=== PATIENT | female | born 1990 | race Caucasian/White ===

== ENCOUNTER 2017-01-16 06:14 | Inpatient (IN) | payer BC ==
[~2017-01-16] VITALS: Ht 167.6 cm; Wt 56.7 kg
--- NOTE | 2017-01-16 08:45 | NUR ---
SCRUB TECH NOTES PATIENT ARRIVED TO [facility] FROM [place] VIA AMBULANCE. VITAL SIGNS: BLOOD PRESSURE 144/95 AND HEART RATE 105. NO SIGNS AND SYMPTOMS OF DISTRESS. PATIENT DENIED PAIN. IV SITE IS POTENT AND INTACT, LEFT AC 20G OPENED AT [facility]. WILL CONTINUE TO ASSESS AND MONITOR PATIENT THROUGH OUT MY SHIFT
[2017-01-16 09:00] VITALS: BP 144/65
[2017-01-16] MEDS ORDERED: DULO60CA45 PO (09:25)
[2017-01-16] MEDS ORDERED: TRAZ-144 PO (09:25)
[2017-01-16] MEDS ORDERED: GABA600T2 PO (09:27)
[2017-01-16] MEDS ORDERED: AMOX500C2 PO (09:44)
[2017-01-16 12:00] VITALS: BP 136/71
[2017-01-16] MEDS ORDERED: MAG HYDROX/AL HYDROX/SIMETH 30 ML UDC PO PRN (12:00)
[2017-01-16] MEDS ORDERED: ZOLPIDEM TARTRATE 5 MG TABLET PO PRN (12:00)
[2017-01-16] MEDS ORDERED: ACETAMINOPHEN 325 MG TABLET PO PRN (12:00)
[2017-01-16] MEDS ORDERED: GADOVERSETAMIDE 2.5 MMOL/5 ML VIAL IJ ONE (12:00)
[2017-01-16] MEDS ORDERED: MAGNESIUM HYDROXIDE 30 ML UDC PO PRN (12:00)
[2017-01-16] MEDS ORDERED: Z GUARD REMEDY 2 OZ OINT TP PRN (12:00)
[2017-01-16] MEDS ORDERED: ONDANSETRON HCL/PF 4 MG/2 ML VIAL IVP PRN (12:00)
--- NOTE | 2017-01-16 15:49 | NUR ---
MRI APPROVED BY , IT WILL BE DONE AT 5.00PM..
[2017-01-16 16:00] VITALS: BP 110/68
--- NOTE | 2017-01-16 17:25 | NUR ---
RN NOTES PATIENT IS OFF THE FLOOR FOR MRI
--- NOTE | 2017-01-16 17:56 | NUR ---
RN NOTES ----- [facility] TEST RESULTS DR. AGUILA REQUESTED TO CONTACT THE RADIOLOGY DEPARTMENT ON TUESDAY TO INTERPRET THE TEST RESULTS COMPLETED BY [facility] PRIOR TO TRANSFER THE PATIENT TO [facility]. WILL ENDORSE TO NEXT SHIFT. Addendum: 01/16/17 at 1824 by BRAD CONN RN [facility] TOOK THE CD TO RADIOLOGY TO UPLOAD ALL IMAGES SO IT WILL BE READY FOR THE RADIOLOGIST TO INTERPRET.
--- NOTE | 2017-01-16 18:03 | NUR ---
PATIENT IS OFF THE FLOOR FOR MRI Addendum: 01/16/17 at 1803 by BRAD CONN RN Amended: Links added.
--- NOTE | 2017-01-16 18:20 | NUR ---
RN NOTES PATIENT RETURNED FROM MRI.
[2017-01-16] MEDS: HYDROCODONE/APAP 5/325MG 1 EACH TABLET PO PRN (18:26)
--- NOTE | 2017-01-16 18:55 | NUR ---
RN CLOSING NOTES PATIENT IS IN BED. ALERT AND ORIENTED TO NAME, TIME AND PLACE. NO SIGN AND SYMPTOMS OF DISTRESS. PAIN ON HER RIGHT FACE DUE TO ABRASION, DR AGUILA ORDERED BENADRYL PRN, PLEASE SEE ORDER. HOME MEDS HAVE NOT BEEN RECONCILED, MD DR AGUILA AWARE. BED IS IN LOW POSITION, LOCKED AND 2 SIDE RAILS ARE UP. IV SITE IS INTACT AND POTENT. PLEASE SEE PREVIOUS NOTES FOR RADIOLOGY. VITAL SIGNS ARE WITHIN NORMAL RANGE. WILL ENDORSE TO HAIRSPRING ADJUSTER NURSE.
[2017-01-16 19:00] VITALS: BP 113/71
[2017-01-16] MEDS ORDERED: diphenhydrAMINE HCL 25 MG CAPSULE PO PRN (19:00)
--- NOTE | 2017-01-16 19:30 | NUR ---
MS RN NOTE PATIENT STABLE. NO RESPIRATORY DISTRESS NOTED. IV SITE INTACT, WITH NO REDNESS NOTED. PATIENT REPORTS PAIN 7/10 PAIN TO FACE. ADMINISTERED PAIN MEDICATION ORDERED. BED LOCKED AND IN LOWEST POSITION. SIDE RAILS UP CALL LIGHT WITHIN REACH.
[2017-01-16] MEDS: LORAZEPAM INJ 2 MG/ML VIAL IV PRN (21:22)
[2017-01-16 22:00] VITALS: BP 113/71
[2017-01-17] VITALS: BP 101/60
[2017-01-17] MEDS: HYDROCODONE/APAP 5/325MG 1 EACH TABLET PO PRN ×3 (03:49→21:20)
[2017-01-17 04:00] VITALS: BP 117/69
[2017-01-17] MEDS: LORAZEPAM INJ 2 MG/ML VIAL IV PRN ×2 (05:26→22:17)
--- NOTE | 2017-01-17 05:27 | NUR ---
CUFF PRESSER NOTE PATIENT STATING THAT SHE IS HAVING ANXIETY AND WOULD LIKE ATIVAN. 1 MG ATIVAN GIVEN VIA IV. NO RESPIRATORY DISTRESS. WILL CONTINUE TO MONITOR.
[2017-01-17 07:01] LABS: CALCIUM, SERUM 8.6 mg/dL (8.5-10.1); CREATININE 0.8 mg/dL (0.6-1.3); MAGNESIUM 1.8 mg/dL (1.8-2.4); PHOSPHORUS 3.5 mg/dL (2.5-4.9); POTASSIUM 3.5 mmol/L (3.5-5.1)
[2017-01-17 07:22] LABS: BASOPHILS # (AUTO) 0.1 /CMM (0.0-0.2); BASOPHILS % (AUTO) 0.8 % (0.0-2.0); EOSINOPHILS # (AUTO) 0.2 /CMM (0.0-0.7); EOSINOPHILS % (AUTO) 2.5 % (0.0-6.0); HEMATOCRIT 38 % (33-45); HEMOGLOBIN 12.3 g/dL (11.5-14.8); LYMPHOCYTES # (AUTO) 0.8 /CMM (0.8-4.8); LYMPHOCYTES % (AUTO) 9.4 % (20.0-44.0); MEAN CORPUSCULAR HEMOGLOBIN 30 PG (26.0-33.0); MEAN CORPUSCULAR HGB CONC 33 g/dl (31.0-36.0); MEAN CORPUSCULAR VOLUME 92 fL (82-100); MONOCYTES # (AUTO) 0.4 /CMM (0.1-1.30); MONOCYTES % (AUTO) 5.1 % (2.0-12.0); NEUTROPHILS # (AUTO) 7.3 /CMM (1.8-8.9); NEUTROPHILS % (AUTO) 82.2 % (43.0-81.0); PLATELET COUNT (AUTO) 170 /CMM (150-450); RDW COEFFICIENT OF VARIATION 13.1 (11.5-15.0); WHITE BLOOD COUNT (AUTO) 8.8 K/uL (4.3-11.0)
--- NOTE | 2017-01-17 07:50 | NUR ---
MS RN RECEIVED ON BED, AWAKE,ALERT,ORIENTED X4,NOT IN ANY FORM OF DISTRESS,RESPIRATIONS EVEN AND UNLABORED,DENIES PAIN AT THIS TIME, WILL MONITOR PATIENT'S CONDITION.
[2017-01-17 08:00] VITALS: BP 100/62
--- NOTE | 2017-01-17 09:00 | NUR ---
MS DUNCAN DUE MEDS GIVEN, BREAKFAST SERVED.
--- NOTE | 2017-01-17 09:13 | NUR ---
WOUND CARE CONSULT: PATIENT SEEN AND SKIN ASSESSMENT DONE. PATIENT ALERT, ORIENTED, AMBULATORY, INDEPENDENT WITH BED MOBILITY, CONTINENT, ESE 21. SEE TODAY'S SKIN ASSESSMENT IN PCS ALONG WITH RECOMMENDATIONS DISCUSSED WITH NURSING STAFF. IN AGREEMENT WITH PLAN OF CARE. Addendum: 01/17/17 at 0915 by HERIBERTO KINCAID WNDNU Amended: Links added.
[2017-01-17] MEDS: PANTOPRAZOLE 40 MG TABLET.DR PO SCH (09:59)
--- NOTE | 2017-01-17 14:00 | NUR ---
MS RN SPOKE TO HER MOM, REGARDING HER CONDITION, WANTS TO SPEAK W/ NEUROLOGIST.
[2017-01-17] MEDS: NEOMY SULF/BACITRAC ZN/POLY 15 GM TUBE TP SCH (14:39)
[2017-01-17 16:00] VITALS: BP_SYST 105; BP_DIAS 63; BP_DIAS 66
[2017-01-17 16:47] LABS: APPEARANCE,URINE SL CLOUDY (CLEAR); BILIRUBIN,URINE NEGATIVE (NEGATIVE); BLOOD, URINE 2+ Ery/uL (NEGATIVE); COLOR,URINE YELLOW (YELLOW); KETONES,URINE 1+ (NEGATIVE); LEUKOCYTE ESTERASE ,URINE NEGATIVE (NEGATIVE); NITRITE, URINE NEGATIVE (NEGATIVE); PROTEIN,URINE TRACE mg/dl (NEGATIVE); UGLUCOSE NEGATIVE (NEGATIVE); UROBILINOGEN,URINE 0.2 EU/dL (0.2)
[2017-01-17 16:58] LABS: PREGNANCY TEST URINE QUAL NEGATIVE (NEGATIVE)
[2017-01-17 17:00] LABS: CALCIUM OXALATE CRYSTALS,UR Few /HPF (None Seen)
[2017-01-17 17:01] LABS: YEAST,URINE Moderate /HPF (None Seen)
[2017-01-17 17:02] LABS: ADD URINE CULTURE YES; BACTERIA,URINE None seen /HPF (None Seen); SQUAMOUS EPITHELIAL CELL,UR Moderate /HPF (None Seen); WBC,URINE 0-2 /HPF (0-3)
--- NOTE | 2017-01-17 18:31 | NUR ---
MS RN ON BED, NO DISTRESS NOTED,ALL NEEDS ATTENDED.
--- NOTE | 2017-01-17 19:45 | NUR ---
MS/RN OPENING NOTES PT ASLEEP, EASILY AROUSABLE TO NAME. A/OX4. ON ROOM AIR, NO SOB OR ACUTE DISTRESS NOTED. BREATHING EVEN AND UNLABORED. NOTES GENERALIZED PAIN TO BE 4-5/10 BUT DOES NOT WANT MEDICATION AT THIS TIME. IV TO LAC PATENT AND INTACT. SEIZURE PRECAUTIONS IMPLEMENTED. BED IN LOW/LOCKED POSITION WITH CALL LIGHT IN REACH. BED RAILS UPX2 WILL CONTINUE TO MONITOR
[2017-01-17 20:00] VITALS: BP 109/66
--- NOTE | 2017-01-17 21:30 | NUR ---
MS/RN NOTES IV TO LEFT AC LEAKING. NEW IV STARTED TO RIGHT HAND #22.
--- NOTE | 2017-01-18 02:00 | NUR ---
MS/RN NOTES PT ASLEEP, BREATHING EVEN AND UNLABORED. NO S/S OF DISTRESS. WILL CONTINUE TO MONITOR
--- NOTE | 2017-01-18 07:00 | NUR ---
MS/RN CLOSING NOTES PT ASLEEP, EASILY AROUSABLE TO NAME. A/OX3, ON ROOM AIR, NO SOB, PAIN OR DISTRESS NOTED. BREATHING EVEN AND UNLABORED. IV TO RIGHT HAND PATENT AND INTACT. MADE PT COMFORTABLE THROUGHOUT SHIFT. ALL NEEDS MET AND ATTENDED TO AT THIS TIME. BED IN LOW/LOCKED POSITION. CALL LIGHT IN REACH. ENDORSED TO AM SHIFT LAM.
[2017-01-18] MEDS: PANTOPRAZOLE 40 MG TABLET.DR PO SCH (07:42)
[2017-01-18] MEDS: HYDROCODONE/APAP 5/325MG 1 EACH TABLET PO PRN ×2 (07:42→15:37)
--- NOTE | 2017-01-18 07:42 | NUR ---
m/s tire builder operator: notes c/o 05/26 nose pain, medicated with norco 1 tab po as ordered. instructed to call for assistance. will continue to monitor.
[2017-01-18 08:00] VITALS: BP 116/71
--- NOTE | 2017-01-18 08:42 | NUR ---
m/s wafer cutter: notes resting comfortable in bed with call light within reach. voiced no discomfort. will continue to monitor.
[2017-01-18] MEDS: NEOMY SULF/BACITRAC ZN/POLY 15 GM TUBE TP SCH (08:53)
--- NOTE | 2017-01-18 12:45 | NUR ---
Social service consult requested for possible drug use. Per H&P report by Dr. Calloway, Pt. is a 26-year-old female was transferred from [facility] after initially evaluated for a witnessed seizure. Her boyfriend yesterday of overdose with Heroin. She took 4-5 wellbutrin tablets to calm herself. CT of the head at the [facility] showed 1.4 cm low-attenuation area.Patient has normal baseline mental status normal. Pt. was hospitalized due to seizures. SW met with pt. bedside. Pt. is A&O x 4. Pt. appeared disheveled and depressed. Pt. states she lived with her boyfriend who she found due to a heroin overdose at their home. Pt. has been in a relationship for approximately a year. Pt. informed ADRYAN she was not attempting to commit suicide, however she wanted to get high and took several Wellbutrin pills that did not belong to her. Pt. stated to ADRYAN she is going to be moving back home to [place] once discharged from the hospital. Her mother will be paying for pt's flight to [place]. Pt. suffers from anxiety and informed ADRYAN, " I just want to get out of here and go home to [place]." Pt. denies any use of alcohol or drugs. Pt. states she is taking Cymbalta and has had no psychiatric hospitalizations in the past. Pt. denies SI/HI at this time. Pt. was employed at [employer] and is currently unemployed. No social service needs were requested at this. SW is available if needed.
--- NOTE | 2017-01-18 13:00 | NUR ---
m/s carbon brusher assembler: md visit seen and examined by janet (acnp) with order to d'c home. order acknowledged. pt request for a shower. verbal order received okay to shower per ancp. h/l removed with tip intact with no swelling, no redness, and no bleeding noted. pt called friend to pick her up. will continue to monitor.
--- NOTE | 2017-01-18 13:15 | NUR ---
m/s chair trimmer: notes pt showering at this time, awaiting for friend to pick her up.
--- NOTE | 2017-01-18 14:00 | NUR ---
m/s diabetes trainer: d'c instructions discharged instruction given to pt and verbalized understanding. awaiting for friend to pick her up. will continue to monitor.
--- NOTE | 2017-01-18 14:15 | NUR ---
m/s chief orthoptist: notes mother called from [place] and asking to have md to give her a call. informed mother that pt is stable for discharge per janet (acnp), but insisted of talking to the doctor. given epic number and dr. pittman (neurologist) to mother and informed her that pt also can share plan of care if she gives her daughter a call. pt made aware to call her mother.
--- NOTE | 2017-01-18 14:20 | NUR ---
m/s pie maker machine: notes dr. magana (psych) on the phone and asked about the pt and informed her that pt is leaving today per janet (acnp). dr. magana spoke to janet and okay to cancel consult. cn aware. pt made aware.
--- NOTE | 2017-01-18 15:23 | NUR ---
M/S WARP KNITTER HELPER: NOTES STILL AWAITING FOR FRIEND TO PICK HER UP. PT RESTING QUIETLY IN BED WITH CALL LIGHT WITHIN REACH. WILL MONITOR.
--- NOTE | 2017-01-18 15:37 | NUR ---
M/S WOOD CABINETMAKER: NOTES C/O / NOSE AND HEAD PAIN, MEDICATED WITH NORCO 1 TAB PO ORDERED. FRIEND TO PICK HER UP AROUND 5:30 PER PT. INSTRUCTED TO CALL FOR ASSISTANCE. WILL CONTINUE TO MONITOR.
[2017-01-18 16:00] VITALS: BP 131/77
--- NOTE | 2017-01-18 17:05 | NUR ---
m/s banking analyst: discharged discharged home accompanied by friend via private car in stable condition with all valuables and d'c papers.
== END 2017-01-18 17:00 | disposition home or self-care (01) | DRG 918 ==
LOC: TELE 08:21 → MED 01-17 09:31
DX: T43.291A Poisoning by other antidepressants, accidental (unintentional), initial encounter (principal); R56.9 Unspecified convulsions; F32.9 Major depressive disorder, single episode, unspecified; R93.0 Abnormal findings on diagnostic imaging of skull and head, not elsewhere classified; F17.210 Nicotine dependence, cigarettes, uncomplicated; S00.81XA Abrasion of other part of head, initial encounter; W19.XXXA Unspecified fall, initial encounter; Y92.9 Unspecified place or not applicable; Y92.009 Unspecified place in unspecified non-institutional (private) residence as the place of occurrence of the external cause
CPT/HCPCS: 36415; 70553-TC; 80048-TC; 81000-TC; 83735-TC; 84100-TC; 84703-TC; 85025-TC; 87081-TC; 87086-TC; 95819-TC; A9579; J2060